=== PATIENT | male | born 1990 | race Caucasian/White ===

== ENCOUNTER 2020-04-16 22:34 | Observation (INO) | payer OTHER, SELFPAY ==
[2020-04-16 22:45] VITALS: BP 120/78; PULSE 107; RESP 10; TEMP 36.8; O2SAT 88; BMI 38.4
--- NOTE | 2020-04-16 22:50 | PC.NURSE ---
Pt on presentation was very lethargic and unable to stay awake, Officer states pt was awake when he arrived at scene and progressively became more thethargic, Narcan IV given and pt started waking up and vomited, pt had minimal response to 2mg Narcan, a second dose given and pt continued to become more lethargic, a third dose of 2mg Narcan given and pt becoming more lethargic. O2 sats were 90% on NRB mask 15L/M. Dr Alva made the decision to intubate pt.
[2020-04-16 23:00] VITALS: BMI 36.9
--- NOTE | 2020-04-16 23:01 | XR_ITS ---
PROCEDURE: XR CHEST PORTABLE CLINICAL HISTORY: SOB Overdose, shortness of breath, tube placement COMPARISON: No exams were available for comparison FINDINGS: 2300 hours Endotracheal tube tip is 2.6 cm above the rosina. NG tube tip is in the region of body of stomach. Consolidation is present in the left lower lobe. Normal heart size. No acute bony abnormalities. IMPRESSION: Endotracheal tube and nasogastric tube in good position. Left lower lobe pneumonia Dictated by: Checo Philip MD 04/17/2020 04:50 Checo Philip MD in [place] 04/17/2020 04:50
[2020-04-16 23:03] VITALS: BP 120/78; PULSE 105; RESP 20; O2SAT 89
[2020-04-16 23:06] LABS: Basophils % 0.4 % (0.1-2.0); Eosinophils # 0.2 K/mm3 (0.0-0.4); Eosinophils % 1.7 % (0.1-12.0); Hematocrit 42.9 % (42.0-52.0); Hemoglobin 14.6 g/dL (14.1-18.0); Lymphocytes # 0.9 K/mm3 (0.7-4.5); Lymphocytes % 9.7 % (10-50); Mean Corpuscular HGB Conc 34.1 g/dL (31.8-35.4); Mean Corpuscular Hemoglobin 30.7 pg (27.0-31.2); Mean Corpuscular Volume 90.2 fl (80-94); Mean Platelet Volume 8.9 fl (7.4-10.4); Monocytes # 0.7 K/mm3 (0.1-1.0); Monocytes % 6.8 % (1.7-9.3); Neutrophils # 7.9 K/mm3 (1.8-7.8); Neutrophils % 81.5 % (37.0-80.0); Platelet Count 168 K/mm3 (142-424); Red Blood Count 4.75 M/mm3 (4.60-6.20); Red Cell Distribution Width 13.7 % (11.5-17.5); White Blood Count 9.7 K/mm3 (4.8-10.8)
[2020-04-16 23:10] LABS: ABG Base Excess -0.6 mmol/L (-2.4-2.3); ABG HCO3 25.5 mmhg (22.0-26.0); ABG Oxygen Saturation 88 % (90-100); ABG PH 7.32 mmol/L (7.35-7.45); ABG PO2 56.1 mmhg (80-100)
[2020-04-16 23:11] LABS: Alanine Aminotransferase 115 U/L (12-78); Albumin Level 4.7 g/dl (3.5-5.0); Albumin/Globulin Ratio 1.5 (1.1-1.8); Alkaline Phosphatase 104 U/L (38-126); Anion Gap 12.3 mEq/L (5-15); Aspartate Amino Transferase 73 U/L (17-59); Bilirubin,Total 0.4 mg/dl (0.2-1.3); Blood Urea Nitrogen 13 mg/dl (9-20); Calcium 9.6 mg/dl (8.4-10.2); Carbon Dioxide 28 mmol/L (22.0-30.0); Chloride 103 mmol/L (98-107); Creatinine Clearance Estimated 243 mL/min (50-200); Estimated Glomerular Filt Rate 114 ml/min (>60); GFR (African American) 137 ML/MIN (>60); Globulin 3.2 g/dL (1.3-3.2); Glucose 99 mg/dl (74-100); Potassium 4.3 mmoL/L (3.5-5.1); Sodium 139 mmol/L (136-145); Total Protein,Serum 7.9 g/dl (6.3-8.2)
--- NOTE | 2020-04-16 23:14 | PC.NURSE ---
Pt positioned for intubation, Oral suctioning performed Ambu ventilation in progress 100mg Ketamine followed by 100mg Rocuronium and first attempt of pt intubation made and failed to properly place. ETT removed and Ambu ventilation resumed. a second ETT was prepared and second attempt with 7.5 ETT, placed 23cm at lip with positive CO2 color change and bilateral breath sound auscultated throughout, tube was secured and pt placed ov ventilator FIO2 100% rate of 18 ,TV 500, PS 8, PEEP 6. 16 guamanian OG placed with 500ml green bile returned. Pt placed on Propofol gtt and HOB raised to 30 degrees. VS stable at this time.
--- NOTE | 2020-04-16 23:15 | PC.NURSE ---
Pt was given 100mg Rocuronium at 2315 04/16/2020, will not scan
[2020-04-16 23:33] VITALS: BP 158/104; PULSE 114; RESP 18; O2SAT 93
--- NOTE | 2020-04-16 23:48 | HMH.EDOD ---
ED Disposition Clinical Impression: Poisoning by opiate or related narcotic, COVID-19 virus IgG antibody detected, COVID-19 virus IgM antibody detected Respiratory failure Qualifiers: Chronicity: acute Respiratory failure complication: hypoxia and hypercapnia Qualified Code(s): J96.01 - Acute respiratory failure with hypoxia; J96.02 - Acute respiratory failure with hypercapnia Disposition: Admitted As Inpatient Condition on Discharge: Critical - Critical Care Critical Care Time: Yes Attestation: On 04/16/20, the high probability of a clinically significant, sudden or life threatening deterioration of the following system(s) required my full and direct attention, intervention and personal management. The time I documented below is in addition to time spent performing reported procedures but includes the following listed in this critical care notation. Total Critical Care Time: 60 Vital system(s) involved:: Respiratory Failure My critical care processes included: Assessment & monitoring of V/S, Initial and Re-exams, Data Review/Interpretation, Coordinating Care, Medication Orders and management, Documentation Medical Decision Making - Medical Records Medical records reviewed: Yes: I reviewed the patient's medical records. - Khoa Inquiry Pt receiving controlled substance: No Vital Signs: 04/16/20 22:45 04/16/20 23:03 04/16/20 23:33 Temperature 98.2 F Temperature Source Oral Pulse Rate [Right] 107 H 105 H 114 H Respiratory Rate 10 L 20 18 Blood Pressure [Right Arm] 120/78 120/78 158/104 H Blood Pressure Mean [Right Arm] 92 92 122 Blood Pressure Position [Right Arm] Supine 02 Sat by Pulse Oximetry 88 L 89 L 93 L Oxygen Delivery Method Room Air Ambu-Bag Mechanical Ventilation Oxygen Flow Rate (LPM) 15 100 04/17/20 00:03 04/17/20 00:33 04/17/20 01:03 Temperature Temperature Source Pulse Rate [Right] 88 82 79 Respiratory Rate 18 18 18 Blood Pressure [Right Arm] 137/93 H 102/60 L 104/61 L Blood Pressure Mean [Right Arm] 107 74 75 Blood Pressure Position [Right Arm] 02 Sat by Pulse Oximetry 99 100 100 Oxygen Delivery Method Mechanical Ventilation Mechanical Ventilation Mechanical Ventilation Oxygen Flow Rate (LPM) 04/17/20 01:41 04/17/20 01:58 04/17/20 02:32 Temperature 97.8 F Temperature Source Rectal Pulse Rate [Right] 96 H 90 91 H Respiratory Rate 18 18 18 Blood Pressure [Right Arm] 103/72 L 115/70 118/66 Blood Pressure Mean [Right Arm] 82 85 83 Blood Pressure Position [Right Arm] 02 Sat by Pulse Oximetry 100 100 100 Oxygen Delivery Method Mechanical Ventilation Mechanical Ventilation Mechanical Ventilation Oxygen Flow Rate (LPM) - Lab Data Lab results reviewed: Yes: I reviewed the patient's lab results. Lab Results 04/16/20 22:40: WBC 9.7, RBC 4.75, Hgb 14.6, Hct 42.9, MCV 90.2, MCH 30.7, MCHC 34.1, RDW 13.7, Plt Count 168, MPV 8.9, Neut % (Auto) 81.5 H, Lymph % (Auto) 9.7 L, [place] % (Auto) 6.8, Eos % (Auto) 1.7, Baso % (Auto) 0.4, Neut # (Auto) 7.9 H, Lymph # (Auto) 0.9, [place] # (Auto) 0.7, Eos # (Auto) 0.2, Baso # (Auto) 0.0 04/16/20 22:40: Sodium 139, Potassium 4.3, Chloride 103, Carbon Dioxide 28, Anion Gap 12.3, BUN 13, Creatinine 0.80, Estimated Creat Clear 243, Estimated GFR 114, Est GFR ( Amer) 137, Glucose 99, Calcium 9.6, Total Bilirubin 0.4, AST 73 H, ALT 115 H, Alkaline Phosphatase 104, Total Protein 7.9, Albumin 4.7, Globulin 3.2, Albumin/Globulin Ratio 1.5 04/16/20 22:40: Troponin I < 0.01 04/16/20 22:40: Urine Opiates Screen Negative, Urine Methadone Screen Negative, Ur Barbituates Screen Negative, Ur Phencyclidine Scrn Positive H, Ur Amphetamines Screen Negative, U Benzodiazepines Scrn Positive H, Urine Cocaine Screen Negative, U Marijuana (THC) Screen Negative 04/16/20 22:58: SARS-CoV-2 IgG Ab (Rapid) Positive A, SARS-CoV-2 IgM Ab (Rapid) Positive A 04/16/20 22:58: Urine Color Yellow, Urine Appearance Clear, Urine pH 7.5, Ur Specific [place] 1.015, U
[2020-04-17] VITALS (35 sets, daily range): BP systolic 96–152; BP diastolic 53–98; PULSE 70–120; RESP 12–18; TEMP 36.6–39.3; O2SAT 91–100; BMI 36.8
--- NOTE | 2020-04-17 00:09 | ECG_ITS ---
APPROVED REPORT Exam: Resting ECG HR:89 bpm ECG Measurements Heart Rate 89 AXES OH 158 P 28 QRSd 88 QRS -4 QT 376 T -14 QTc 457 Conclusion Normal sinus rhythm Normal ECG Electronically signed by : Don Antonio, 04/17/2020 07:50:28
[2020-04-17 00:14] LABS: Oxygen 100 %
[2020-04-17 00:15] LABS: ABG PCO2 50.3 mmhg (35.0-45.0)
--- NOTE | 2020-04-17 00:23 | PC.NURSE ---
Confirmed ABX treatment with James pharmacist.
[2020-04-17 00:33] LABS: Barbiturates Screen,Urine Negative ng/ml (<200); Benzodiazepines Screen,Urine Positive ng/ml (<200)
[2020-04-17 00:34] LABS: Amphetamine/Metha Screen,Urine Negative ng/ml (<1000); Cannabinoid Screen,Urine Negative ng/ml (<50)
[2020-04-17 00:35] LABS: Cocaine Screen,Urine Negative ng/ml (<300)
[2020-04-17 00:36] LABS: Methadone Screen,Urine Negative ng/ml (<300); Opiate Screen,Urine Negative ng/ml (<300)
[2020-04-17 00:37] LABS: Phencyclidine Screen,Urine Positive ng/ml (<25)
[2020-04-17 00:40] LABS: ABG Base Excess -0.1 mmol/L (-2.4-2.3); ABG Oxygen Saturation 97 % (90-100); ABG PCO2 43.1 mmhg (35.0-45.0); ABG PH 7.38 mmol/L (7.35-7.45); ABG PO2 93.9 mmhg (80-100); ABG TCO2 26.3 mmhg (23-27); Oxygen 100 %; Vent Rate 18
[2020-04-17 00:41] LABS: Allen's Test Y; PEEP 7; Pressure Support 8; Source R/R
[2020-04-17 00:44] LABS: Coronavirus 19 IgG Antibody Positive (Negative)
[2020-04-17 00:45] LABS: Coronavirus 19 IgM Antibody Positive (Negative)
[2020-04-17 00:57] LABS: Troponin I < 0.01 ng/ml (0.00-0.034)
[2020-04-17 00:58] LABS: Microscopic, Urine URINE MICROSCOPIC (MICROSCOPIC)
[2020-04-17 01:01] LABS: Appearance,Urine CLEAR (Clear); Bilirubin,Urine Negative (Negative); Blood, Urine 3+ (Negative); Color,Urine YELLOW (Yellow); Glucose,Urine (UA) Negative (Negative); Ketones,Urine Negative (Negative); Leukocyte Esterase,Urine Negative (Negative); Nitrate,Urine Negative (Negative); PH,Urine 7.5 (5.0-8.5); Protein,Urine Negative (Negative); Specific Gravity, Urine 1.015 (1.005-1.030); Urobilinogen,Urine 0.2 EU/dl (0.2)
--- NOTE | 2020-04-17 01:09 | XR_ITS ---
PROCEDURE: XR CHEST PORTABLE CLINICAL HISTORY: post intubation w/ possible aspiration COMPARISON: CR XR CHEST PORTABLE from 04/16/2020 FINDINGS: 1:25 a.m.. Endotracheal tube tip is 1.8 cm above the rosina. Nasogastric tube tip is in the region of the body of stomach. Normal heart size. Increasing consolidation is present in the left lower lobe and in the left perihilar region. Atelectatic changes are present in the right upper lobe. There is also increased density in the right infrahilar area. IMPRESSION: Endotracheal tube tip is slightly low at 1.8 cm above the rosina. NG tube tip in good position. Increasing consolidation in the left lower lobe left perihilar region and right infrahilar area consistent with bilateral pneumonia. Aspiration is a consideration. Dictated by: Checo Philip MD 04/17/2020 04:48 Checo Philip MD in [place] 04/17/2020 04:48
[2020-04-17 01:20] LABS: Adenovirus,PCR Not Detected (NotDetected); Bordetella Pertussis Not Detected (NotDetected); Chlamydophila Pneumoniae, PCR Not Detected (NotDetected); Coronavirus 19, PCR Not Detected (NotDetected); Coronavirus 229E Not Detected (NotDetected); Coronavirus NL63 Not Detected (NotDetected); Coronavirus OC43 Not Detected (NotDetected); Coronovirus HKU1,PCR Not Detected (NotDetected); Human Metapneumovirus Not Detected (NotDetected); Influenza A, PCR Not Detected (NotDetected); Influenza AH1, 2009 Not Detected (NotDetected); Influenza AH1, PCR Not Detected (NotDetected); Influenza AH3,PCR Not Detected (NotDetected); Influenza B, PCR Not Detected (NotDetected); Mycoplasma Pneumoniae, PCR Not Detected (NotDetected); Parainfluenza 1, PCR Not Detected (NotDetected); Parainfluenza 2, PCR Not Detected (NotDetected); Parainfluenza 3, PCR Not Detected (NotDetected); Parainfluenza 4, PCR Not Detected (NotDetected); Respiratory Syncytial Virus Not Detected (NotDetected); Rhinovirus/Enterovirus Not Detected (NotDetected)
--- NOTE | 2020-04-17 02:33 | PC.NURSE ---
Thick dark secretions suctioned from pt's mouth, scant suctioned through Am[place], OG continues to produce copious amounts of bile.
--- NOTE | 2020-04-17 03:12 | PC.NURSE ---
patient up to floor via stretcher per staff.
[2020-04-17 04:17] LABS: Troponin I < 0.01 ng/ml (0.00-0.034)
[2020-04-17 05:47] LABS: POC Glucose,Bedside 144 (70-110)
[2020-04-17 06:35] LABS: Basophils % 0.1 % (0.1-2.0); Eosinophils # 0.1 K/mm3 (0.0-0.4); Eosinophils % 0.6 % (0.1-12.0); Hematocrit 41.8 % (42.0-52.0); Hemoglobin 14.4 g/dL (14.1-18.0); Lymphocytes # 0.5 K/mm3 (0.7-4.5); Lymphocytes % 5.1 % (10-50); Mean Corpuscular HGB Conc 34.5 g/dL (31.8-35.4); Mean Corpuscular Hemoglobin 31.3 pg (27.0-31.2); Mean Corpuscular Volume 90.7 fl (80-94); Mean Platelet Volume 8.8 fl (7.4-10.4); Monocytes # 0.4 K/mm3 (0.1-1.0); Monocytes % 4.8 % (1.7-9.3); Neutrophils # 7.9 K/mm3 (1.8-7.8); Neutrophils % 89.3 % (37.0-80.0); Platelet Count 149 K/mm3 (142-424); Red Blood Count 4.61 M/mm3 (4.60-6.20); Red Cell Distribution Width 13.8 % (11.5-17.5); White Blood Count 8.8 K/mm3 (4.8-10.8)
[2020-04-17 06:57] LABS: MANUAL DIFFERENTIAL MANUAL DIFFERENTIAL (MANUAL DIFF)
[2020-04-17 07:01] LABS: Chloride 102 mmol/L (98-107); Potassium 3.8 mmoL/L (3.5-5.1); Sodium 139 mmol/L (136-145)
[2020-04-17 07:04] LABS: Anion Gap 12.8 mEq/L (5-15); Blood Urea Nitrogen 11 mg/dl (9-20); Carbon Dioxide 28 mmol/L (22.0-30.0); Creatinine Clearance Estimated 241 mL/min (50-200); Estimated Glomerular Filt Rate 114 ml/min (>60); GFR (African American) 137 ML/MIN (>60); Glucose 155 mg/dl (74-100); Magnesium 1.5 mg/dl (1.6-2.3)
[2020-04-17 07:13] LABS: Troponin I < 0.01 ng/ml (0.00-0.034)
[2020-04-17 07:15] LABS: ABG Base Excess 2.1 mmol/L (-2.4-2.3); ABG HCO3 26.9 mmhg (22.0-26.0); ABG Oxygen Saturation 99 % (90-100); ABG PCO2 44.2 mmhg (35.0-45.0); ABG PO2 301.7 mmhg (80-100); ABG TCO2 28.2 mmhg (23-27)
[2020-04-17 07:17] LABS: Allen's Test Patient Unable; Oxygen 100 %; PEEP 5; Pressure Support 10; Source Right Radial; Tidal Volume 500; Vent Rate 18
--- NOTE | 2020-04-17 07:21 | PC.NURSE ---
patient is intubated at this time and sedated. he is unable to answer questions so admission is limited
--- NOTE | 2020-04-17 07:30 | XR_ITS ---
PROCEDURE: XR CHEST PORTABLE CLINICAL HISTORY: intubation Respiratory failure, overdose, pneumonia COMPARISON: CR XR CHEST PORTABLE from 04/16/2020 CR XR CHEST PORTABLE from 04/17/2020 FINDINGS: Endotracheal tube tip is in good position 3.4 cm above the rosina. Nasogastric tube tip is in the region of the body of the stomach. Consolidation is present in the left mid and lower lung zone and right lower lobe medially consistent with bilateral pneumonia which may be due to aspiration. This may be slightly worse on both sides. No acute bony abnormalities. IMPRESSION: Endotracheal tube and nasogastric tube in good position with bilateral pneumonia which may be slightly worse Dictated by: Checo Philip MD 04/17/2020 07:36 Checo Philip MD in [place] 04/17/2020 07:36
--- NOTE | 2020-04-17 08:00 | CA_ITS ---
APPROVED REPORT EXAM: Comprehensive 2D, Doppler, and color-flow Echocardiogram Corner Cutter Machine Operator: Aleja Limon CRT Ht: 6 ft 1 in Wt: 280lbs BSA: 2.48 BP: 118/66 mmHg Indications: Murmur, OD, NARCANED, INTUBATED 2D Dimensions Aortic Root 2.92 cm LVOT 2.06 cm (M/F) 1.5-2.5 M-Mode Dimensions RVDd 2.69 cm (0.9-2.6) LA Diam 3.05 cm (1.9-4.0) LVDd 5.03 cm (3.5-5.7) Ao Diam 3.65 cm (2.0-3.7) LVDs 3.39 cm (3.5-5.7) IVSd 1.26 cm (0.6-1.1) PWd 0.84 cm (0.6-1.1) EF (Teich) 60.70% FS 32.60% EDV (Teich) 119.90 mL ESV (Teich) 47.10 mL LV Diastology E Decel Time 210.00 (160-240 msec) E/A Ratio 1.17 MED E' 6.40 (< 7 cm/sec) E'/MED E' Ratio 11.50 (>14) LAT E' 9.40 (<10 cm/sec) E/LAT E' Ratio 7.83 (>14) Aortic Valve AO Peak GR. 3.10 mmHg Mitral Valve MV A Velocity 63.00 (40-130 cm/s) E/A Ratio 1.17 MV Decel. Time 210.00 (160-240 ms) Pulmonary Valve PV Peak Velocity 125.00 (50-150 cm/s) Tricuspid Valve TR P. Velocity 290.00 cm/s Left Ventricle Left atrium is normal size, left ventricle is normal size, there is no concentric left ventricular hypertrophy, visually estimated ejection fraction 55% with no regional wall motion abnormality, diastolic parameters are within normal range. Right Ventricle Right atrium and right ventricle are normal size and contractility. Aortic Valve Aortic valve is grossly normal, there is no aortic stenosis or aortic insufficiency. Mitral Valve Mitral valve is grossly normal, there is no mitral stenosis, there is trace mitral regurgitation. Tricuspid Valve Tricuspid valve is grossly normal, there is trace tricuspid regurgitation. Pulmonic Valve Pulmonic valve is poorly visualized. Great Vessels Aortic root is normal size. Pericardium No significant pericardial effusion noted. Conclusion 1. Normal left ventricular size, preserved left ventricular systolic function, visually estimated ejection fraction 55% with no regional wall motion abnormality, diastolic parameters are within normal range. 2. Trace mitral and tricuspid regurgitation. 3. No significant pericardial effusion noted. Electronically signed by : Ivan Neal, 04/18/2020 04:34:24
--- NOTE | 2020-04-17 08:33 | HMH.PHAVTE ---
[facility] Pharmacy VTE Monitoring - Patient Demographics Admission date: 04/17/20 Report Date: 04/17/20 Time: 08:33 Allergies/Adverse Reactions: Patient Allergies No Known Allergies Allergy (Unverified 06/03/17 14:49) Height: 1.85 m Weight: 126 kg Patient Problems: Current Active Problems Poisoning by opiate or related narcotic (Acute) Respiratory failure (Acute) COVID-19 virus IgG antibody detected (Acute) COVID-19 virus IgM antibody detected (Acute) - VTE Risk Labs: VTE Related Lab Results Hgb 14.4 g/dL (14.1-18.0) 04/17/20 06:10 Hct 41.8 % (42.0-52.0) L 04/17/20 06:10 Plt Count 149 K/mm3 (142-424) 04/17/20 06:10 BUN 11 mg/dl (9-20) 04/17/20 06:10 Creatinine 0.80 mg/dl (0.66-1.25) 04/17/20 06:10 Estimated Creat Clear 241 mL/min (50-200) 04/17/20 06:10 Clinical Trial Participant: No - Prophylaxis VTE Prophylaxis Ordered?: Yes Types of VTE Prophylaxis: TEDS Knee High Location of Applied Device: Bilateral Lower Extremeties
--- NOTE | 2020-04-17 08:55 | PC.NURSE ---
0800 turned to l side 0835 turned propafol down to 18mcg/kg/min
[2020-04-17 09:00] LABS: Lymphocytes % 8 % (10-50); Monocytes % 3 % (2-9); Neutrophils % 84 % (42-76); Total Cells Counted 100
[2020-04-17 09:01] LABS: Platelet Estimate Normal; RBC Morphology Normal
[2020-04-17 09:09] LABS: Creatine Kinase 159 U/L (55-170)
--- NOTE | 2020-04-17 09:22 | PC.NURSE ---
Addendum entered by Lucille Edwards RN 04/17/20 09:52: was also instructed to increase LR to 100ml/hr Original Note: dr. nguyen turned down fio2 to 50% at this time. also stated to order soft restraints for wrists prior to weaning of sedation to protect patient air way. once patient awake instructed to do spontaneous breathing trial.
--- NOTE | 2020-04-17 10:08 | PC.NURSE ---
propofol turned off at this time after slowly decreasing rate. at this time no change in patient. not responding to verbal stimuli or shaking
--- NOTE | 2020-04-17 10:09 | HMH.HP ---
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 -pt was admitted for resp support and iv abx - [facility] History I have reviewed the patient's past medical history: Yes *Have you ever received a pneumonia vaccine?: No *Have you received a flu vaccine this season?: No - *Social History Smoking Status: Current every day smoker # Packs/Day (cigarettes): 1 Alcohol Intake: current Substance Use Type: heroin, inhalants 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 *Occupational Status:: other *Travel in the last 8 weeks: None Family Hx:: Unable to obtain Review of Systems - Review of Systems Review of systems:: unable to obtain Meds Home Medications Medication Instructions Recorded Confirmed Type No Known Home Medications 04/17/20 04/17/20 History Allergies Allergy/AdvReac Type Severity Reaction Status Date / Time No Known Allergies Allergy Unverified 06/03/17 14:49 Exam Vital signs and Labs for Last 24 Hours: Temp Pulse Resp BP Pulse Ox 98.6 F 70 18 124/73 100 04/17/20 08:00 04/17/20 08:00 04/17/20 08:00 04/17/20 08:00 04/17/20 08:00 Laboratory Results - last 24 hr 04/16/20 22:40: WBC 9.7, RBC 4.75, Hgb 14.6, Hct 42.9, MCV 90.2, MCH 30.7, MCHC 34.1, RDW 13.7, Plt Count 168, MPV 8.9, Neut % (Auto) 81.5 H, Lymph % (Auto) 9.7 L, [place] % (Auto) 6.8, Eos % (Auto) 1.7, Baso % (Auto) 0.4, Neut # (Auto) 7.9 H, Lymph # (Auto) 0.9, [place] # (Auto) 0.7, Eos # (Auto) 0.2, Baso # (Auto) 0.0 04/16/20 22:40: Sodium 139, Potassium 4.3, Chloride 103, Carbon Dioxide 28, Anion Gap 12.3, BUN 13, Creatinine 0.80, Estimated Creat Clear 243, Estimated GFR 114, Est GFR ( Amer) 137, Glucose 99, Calcium 9.6, Total Bilirubin 0.4, AST 73 H, ALT 115 H, Alkaline Phosphatase 104, Total Protein 7.9, Albumin 4.7, Globulin 3.2, Albumin/Globulin Ratio 1.5 04/16/20 22:40: Troponin I < 0.01 04/16/20 22:40: Urine Opiates Screen Negative, Urine Methadone Screen Negative, Ur Barbituates Screen Negative, Ur Phencyclidine Scrn Positive H, Ur Amphetamines Screen Negative, U Benzodiazepines Scrn Positive H, Urine Cocaine Screen Negative, U Marijuana (THC) Screen Negative 04/16/20 22:58: SARS-CoV-2 IgG Ab (Rapid) Positive A, SARS-CoV-2 IgM Ab (Rapid) Positive A 04/16/20 22:58: Urine Color Yellow, Urine Appearance Clear, Urine pH 7.5, Ur Specific [place] 1.015, Urine Protein Negative, Urine Glucose (UA) Negative, Urine Ketones Negative, Urine Blood 3+, Urine Nitrate Negative, Urine Bilirubin Negative, Urine Urobilinogen 0.2, Ur Leukocyte Esterase Negative, Urine RBC 3-5 04/16/20 23:08: O2 % 100, ABG pH 7.32 L, ABG pCO2 50.3 H, ABG pO2 56.1 L, ABG HCO3 25.5, ABG Total CO2 27.0, ABG O2 Saturation 88 L, ABG Base Excess -0.6 04/17/20 00:38: Specimen Source R/r, O2 % 100, ABG pH 7.38, ABG pCO2 43.1, ABG pO2 93.9, ABG HCO3 25.0, ABG Total CO2 26.3, ABG O2 Saturation 97, ABG Base Excess -0.1, Checo Test Y, Vent Rate 18, PEEP 7 04/17/20 01:15: Chlamy pneumoniae PCR Not detected, Adenovirus (PCR) Not detected, B. pertussis DNA (PCR) Not detected, Coronavirus OC43 (PCR) Not detected, Coronavirus HKU1 (PCR) Not detected, Coronavirus 229E (PCR) Not detected, SARS-CoV-2 (PCR) Not detected, Coronavirus NL63 (PCR) Not detected, Human Metapneumovir PCR Not detected, Influenza A (H1) PCR Not detected, Influ A (H1N1/09) PCR Not detected, Influenza A (H3) PCR Not detected, Influenza Type A (PCR) Not detected, Influenza Type B (PCR) Not detected, M. pneumoniae (PCR) Not detected, Parainfluenza 1 (PCR) Not detected, Parainfluenza 2 (PCR) Not detected, Parainfluenza 3 (PCR) Not detected, Parainfluenza 4 (PCR) Not detected, RSV (PCR) Not detected, Entero/Rhino (PCR) Not detected 04/17/20 03:30: Trop
--- NOTE | 2020-04-17 11:19 | HMH.PULMCON ---
*Admission Date: 04/17/20 *History of present illness: Patient intubated and sedated. Family cannot be reached. History obtained from chart review. Mr. Adkins is a 37-year-old male previous drug abuser presented to the hospital with altered mentation/agitation and patient was found to be actively taking drugs before EMS brought the patient to the hospital. On arrival patient given Narcan without any response and patient was intubated for airway protection. 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 *Occupational Status:: other *Travel in the last 8 weeks: None Family Hx:: Unable to obtain ROS - Review of Systems Review of systems:: unable to obtain Review of systems unable to obtain as patient intubated and sedated on mechanical ventilation Meds Home Medications Medication Instructions Recorded Confirmed Type No Known Home Medications 04/17/20 04/17/20 History Allergies Allergy/AdvReac Type Severity Reaction Status Date / Time No Known Allergies Allergy Unverified 06/03/17 14:49 Exam Radiology reports for Last 24 Hours: Chest x-ray showed left upper lobe & right lower lobe pulmonary infiltrates. ET tube in position - Constitutional Constitutional:: no acute distress, comfortable - HENMT Exam HENMT: normocephalic, atraumatic - Eye Exam Eyes:: normal appearance both eyes and related structures, normal conjunctiva - Neck Exam Neck:: normal visual inspection, thyroid normal, no lymphadenopathy - Respiratory Exam Respiratory:: crackles Comments: Intubated and mechanically ventilated. Coarse breath sounds in both lower lung blank - Cardiovascular Exam Cardiac:: regular rhythm, S1, S2 - GI Exam GI:: soft, no hepatosplenomegaly - Skin Exam Skin: warm, no rash - Neurological Exam Sedated at a RASS of -4 - Extremities Exam Extremities: no cyanosis, no clubbing, no edema Internal Medicine - CN: Reslt - Labs CBC & Chem 7: 04/17/20 06:10 04/17/20 06:10 Labs: Short CBC 04/16/20 04/17/20 Range/Units 22:40 06:10 WBC 9.7 8.8 (4.8-10.8) K/mm3 Hgb 14.6 14.4 (14.1-18.0) g/dL Hct 42.9 41.8 L (42.0-52.0) % Plt Count 168 149 (142-424) K/mm3 BMP 04/16/20 04/17/20 22:40 06:10 Sodium 139 139 Potassium 4.3 3.8 Chloride 103 102 Carbon Dioxide 28 28 BUN 13 11 Creatinine 0.80 0.80 Glucose 99 155 H D Calcium 9.6 9.0 Cardiac Enzymes 04/16/20 04/17/20 04/17/20 Range/Units 22:40 03:30 06:10 Total Creatine Kinase (55-170) U/L Troponin I < 0.01 < 0.01 < 0.01 (0.00-0.034) ng/ml 04/17/20 Range/Units 06:10 Total Creatine Kinase 159 (55-170) U/L Troponin I (0.00-0.034) ng/ml Liver Function 04/16/20 Range/Units 22:40 Total Bilirubin 0.4 (0.2-1.3) mg/dl AST 73 H (17-59) U/L ALT 115 H (12-78) U/L Alkaline Phosphatase 104 (38-126) U/L Albumin 4.7 (3.5-5.0) g/dl Urine 04/16/20 Range/Units 22:58 Urine Color Yellow (Yellow) Urine Appearance Clear (Clear) Urine pH 7.5 (5.0-8.5) Ur Specific [place] 1.015 (1.005-1.030) Urine Protein Negative (Negative) Urine Glucose (UA) Negative (Negative) - ABG Interpretation ABG results: 04/16/20 04/17/20 04/17/20 23:08 00:38 07:10 ABG pH 7.32 L 7.38 7.40 ABG pCO2 50.3 H 43.1 44.2 ABG pO2 56.1 L 93.9 301.7 H ABG HCO3 25.5 25.0 26.9 H ABG Total CO2 27.0 26.3 28.2 H ABG O2 Saturation 88 L 97 99 ABG Base Excess -0.6 -0.1 2.1 Interpretation: normal Assessment and Plan - Assessment and plan all Dx Assessment and Plan for all problems:: #Acute intoxication: #Altered mentation: #Acute respiratory failure: 29-year-old with no
--- NOTE | 2020-04-17 13:03 | PC.NURSE ---
Addendum entered by Lucille Edwards RN 04/17/20 13:34: ALSO NOTED OG TUBE WAS FOUND ON FLOOR. WILL NOT ATTEMPT TO REPLACE AT THIS TIME. Addendum entered by Lucille Edwards RN 04/17/20 13:28: NURSING STAFF SITTING AT BEDSIDE Addendum entered by Lucille Edwards RN 04/17/20 13:28: RESTRAINTS DISCONTINUED. PATIENT COOPERATING WITH VENT AND NOT ATTEMPTING TO PULL OUT Original Note: late entry: [address] MÁRQUEZ AND GE[place]GINA AWARE PATIENT HAD BEEN OFF SEDATION FOR ABOUT 1.5 HOURS. NOTED TO HAVE NO REFLEXES AT THAT TIME, AND UN-AROUSABLE. PUPILS PINPOINT AND SLUGGISH TO REACT IF AT ALL. WOULD CONTINUE TO MONITOR. 1200 REMOVED RESTRAINTS FROM PATIENT WRIST TO TURN HIM. WHEN LYING PATIENT BACK HE OPENED HIS EYES AND TRIED TO SIT UP. PATIENT WAS A LITTLE ANXIOUS WHEN WAKING BUT AFTER EDUCATING PATIENT ON WHAT HAPPENED AND WHERE HE WAS HE CALMED DOWN. PATIENT STARTED TO WRITE ON A PAPER TO COMMUNICATE WITH STAFF. HE DID WRITE I FEEL LIKE I CANT BREATH. MORE EDUCATION DONE WITH PATIENT. HE REMAINED CALMED AND APPEARED TO UNDERSTAND WHAT WAS GOING ON. STILL SOME MOMENTS OF STARING OFF INTO SPACE. RESTRAINTS REMAINED OFF DURING THIS TIME AND PATIENT WAS EDUCATED WHY THEY WERE USED IN BEGINNING. 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 AFTER WILLI ASSESSED PATIENT HE WISHED TO GIVE PATIENT A 2 HOUR TRIAL TO GIVE HIM MORE TIME TO WAKE UP FULLY. PATIENT WAS UNDERSTANDING WITH THIS. CURRENTLY PATIENT IS SLEEPING AND TOLERATING VENT WELL. NO ISSUES NOTED BREATHING ABOUT 12-18 A MINUTE. PULSE RATE IN 90S. BP WITHIN NORMAL LIMITS.
--- NOTE | 2020-04-17 14:38 | PC.NURSE ---
dr nguyen rounded on patient. update given. stated okay to extubate at this time. called and updated respiratory therapy
--- NOTE | 2020-04-17 15:38 | PC.NURSE ---
Addendum entered by Lucille Edwards RN 04/17/20 15:45: correction 40% venti Original Note: extubated at 1450 some green sputum coughed up on gown during extubation. placed patient on 50% venti once extubated currently sating 93% with no difficulty, breathing easy and resting in bed, heart rate elevated fever 101.1 axillary. will administer tylenol
--- NOTE | 2020-04-17 15:55 | PC.NURSE ---
put in speech eval for patient. they got okay from case management to place patient on regular thin liquid diet. if any issues arise notify them and make patient npo. patient has had water with no difficulty
--- NOTE | 2020-04-17 16:00 | PC.NURSE ---
placed patient on 3 l o2 at this time
[2020-04-17 16:30] LABS: POC Glucose,Bedside 160 (70-110)
[2020-04-17 17:44] LABS: POC Glucose,Bedside 138 (70-110)
--- NOTE | 2020-04-17 19:09 | PC.NURSE ---
alerted neus patient heart rate had been elevated in 120s and got okay to remove norman
--- NOTE | 2020-04-17 19:25 | PC.NURSE ---
report given to dionte
--- NOTE | 2020-04-17 19:49 | ECG_ITS ---
APPROVED REPORT Exam: Resting ECG HR:109 bpm ECG Measurements Heart Rate 109 AXES [place] 166 P 38 QRSd 84 QRS 8 QT 318 T -9 QTc 428 Conclusion Sinus tachycardia Incomplete RBBB Nonspecific T wave abnormality Abnormal ECG Electronically signed by : Jose Centeno, 04/18/2020 16:47:03
[2020-04-18] VITALS: BP 134/76; PULSE 112; PULSE 116; RESP 16; TEMP 36.9; O2SAT 99
[2020-04-18 02:00] VITALS: BP 131/74; PULSE 103; RESP 20; O2SAT 95
[2020-04-18 04:00] VITALS: BP 130/85; PULSE 100; PULSE 102; RESP 20; TEMP 37.3; O2SAT 95
[2020-04-18 04:22] VITALS: BMI 36.8
--- NOTE | 2020-04-18 05:44 | PC.NURSE ---
shift summary patient has awake alert and oriented throughout night. o2 sats have maintained greater than 92%, patient now on room air and sustaining sats. breath sounds diminished with expiratory wheezes throughout. strong, intermittent productive cough. temperature has not been greater than 100 this shift. cardiac cath lab technologist has shown sr to st from 80s to 120 on rate. bowel sound active x 4. voiding per urinal clear yellow urine.
[2020-04-18 06:00] VITALS: BP 139/87; PULSE 98; RESP 20; O2SAT 93
[2020-04-18 08:00] VITALS: BP 150/98; PULSE 100; PULSE 95; RESP 18; TEMP 37; O2SAT 92; O2SAT 93
--- NOTE | 2020-04-18 10:55 | SW/DCPLANNER ---
Addendum entered by Lucille Juárez 04/18/20 14:22: I have provided this patient with a resource list of drug and alcohol (inpatient and outpatient) in [place] and surrounding areas. I have also provided this patient with an information sheet regarding [employer]. Patient will discharge home today. Original Note: I have spoke with this patient regarding discharge plans. Patient stated that he resides at home and anticipates returning home once discharged today. Patient stated that he is not interested in Inpatient Rehabilitation at this time but is interested in outpatient resources. I will provide this patient with an outpatient resource list and assist with any needs/questions. Patient stated that he has been to [facility] in [place] in the past but was kicked out due to noncompliance. I will follow up with this patient and provide him with a resource list prior to discharging.
--- NOTE | 2020-04-18 11:23 | HMH.PULMPN ---
Internal Medicine - PN: Subj *Date: 04/18/20 *Time: 11:23 Interval history: No acute distress. Events overnight. Patient extubated yesterday, remained on room air with no respiratory distress Exam - Constitutional Constitutional:: no acute distress, comfortable - HENMT Exam HENMT: normocephalic, atraumatic - Eye Exam Eyes:: normal appearance both eyes and related structures, eyelids normal, normal conjunctiva, normal sclera - Neck Exam Neck:: normal visual inspection, thyroid normal, no lymphadenopathy - Respiratory Exam Respiratory:: able to speak in complete sentences, normal breath sounds, normal respiratory effort - Cardiovascular Exam Cardiac:: regular rhythm, S1, S2 - GI Exam GI:: soft, no hepatosplenomegaly - Skin Exam Skin: no rash, normal elastacity, no lesions, normal turgor - Neurological Exam Neurological: alert, awake, oriented X3 - Extremities Exam Extremities: no cyanosis, no clubbing, no edema - Psychiatric Exam Psychiatric: normal affect, appearance grossly normal, affect normal, attitude normal, no homicidal ideation, no suicidal ideation Assessment and Plan (1) COVID-19 virus IgG antibody detected Status: Acute Category: Medical Code(s): Z01.84 - Encounter for antibody response examination (2) COVID-19 virus IgM antibody detected Status: Acute Category: Medical Code(s): Z01.84 - Encounter for antibody response examination (3) Poisoning by opiate or related narcotic Status: Acute Category: Medical (4) Respiratory failure Status: Acute Qualifiers: Chronicity: acute Respiratory failure complication: hypoxia and hypercapnia Qualified Code(s): J96.01 - Acute respiratory failure with hypoxia; J96.02 - Acute respiratory failure with hypercapnia Category: Medical Code(s): J96.90 - Respiratory failure, unspecified, unspecified whether with hypoxia or hypercapnia (5) Aspiration pneumonia Status: Acute Qualifiers: Aspiration pneumonia type: due to vomit Laterality: bilateral Lung location: unspecified part of lung Qualified Code(s): J69.0 - Pneumonitis due to inhalation of food and vomit Category: Medical Code(s): J69.0 - Pneumonitis due to inhalation of food and vomit (6) Severe sepsis with acute organ dysfunction Status: Acute Category: Medical Code(s): A41.9 - Sepsis, unspecified organism; R65.20 - Severe sepsis without septic shock - Assessment and plan all Dx Assessment and Plan for all problems:: #Acute intoxication: 29-year-old with no prior medical history reported on the chart, drug abuser came in to the ED with possible intoxication and altered mentation monitoring with IV Narcan and patient was intubated for airway protection. Chest x-ray also showed left middle lobe and right lower lobe pulmonary traits concerning for aspiration. ABG post admission within normal limits. Patient weaned from sedation yesterday and eventually extubated. Patient respiratory status remained stable, on room air since yesterday with no respiratory distress. Endotracheal aspirate Gram stain showed few gram-positive diplococci, cocci in chains and few gram-negative diplococci likely mixed normal respiratory antonella Plan: -Continue levofloxacin for a total of 7 days -Patient can be discharged from pulmonary standpoint on the above-mentioned antibiotics. Thank you for involving pulmonary in this patient care. We will continue to follow.
[2020-04-18 12:00] VITALS: BP 153/97; PULSE 80; PULSE 87; RESP 16; TEMP 36.7; O2SAT 92
--- NOTE | 2020-04-18 13:54 | HMH.DCSUM ---
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 Patient was obtunded, after abnormal ABG and inability to protect airway, after having large emesis in the emergency department, patient was intubated and IV antibiotics started. He received steroids, fluids, levofloxacin and clindamycin IV. White blood cell count remained normal, H/H stable, electrolytes have remained normal, BUN/creatinine normal endotracheal aspirates most likely mixed normal antonella. SARS-COV-2 IgG positive, SARS-COV-2 IgM positive, SARS-COV-2 PCR negative 04/16/2020 chest x-ray: IMPRESSION: Endotracheal tube and nasogastric tube in good position. Left lower lobe pneumonia Dictated by: Cedrick, 04/17/2020 ECHO: Conclusion 1. Normal left ventricular size, preserved left ventricular systolic function, visually estimated ejection fraction 55% with no regional wall motion abnormality, diastolic parameters are within normal range. 2. Trace mitral and tricuspid regurgitation. 3. No significant pericardial effusion noted. Electronically signed by : Ivan Neal 29-year-old male patient lying in bed resting quietly respirations even/easy. He denies any shortness of breath during the night, room air saturations 94%, discussed discharging home today he is in agreement with this. Pulmonary has seen and recommends: 29-year-old with no prior medical history reported on the chart, drug abuser came in to the ED with possible intoxication and altered mentation monitoring with IV Narcan and patient was intubated for airway protection. Chest x-ray also showed left middle lobe and right lower lobe pulmonary traits concerning for aspiration. ABG post admission within normal limits. Patient weaned from sedation yesterday and eventually extubated. Patient respiratory status remained stable, on room air since yesterday with no respiratory distress. Endotracheal aspirate Gram stain showed few gram-positive diplococci, cocci in chains and few gram-negative diplococci likely mixed normal respiratory antonella Plan: -Continue levofloxacin for a total of 7 days -Patient can be discharged from pulmonary standpoint on the above-mentioned antibiotics. Thank you for involving pulmonary in this patient care. We will continue to follow. We will discharge home today 1. Follow-up with primary care in 1 week 2. Follow-up with pulmonary in 4 weeks 3. Levaquin 750 mg daily x5 days Objective Vital signs: Temp Pulse Resp BP Pulse Ox 98.1 F 87 16 153/97 H 92 L 04/18/20 12:00 04/18/20 12:00 04/18/20 12:00 04/18/20 12:00 04/18/20 12:00 no acute distress, cooperative - *Routine HEENT Exam Head: Present: normocephalic ENT: Present: mucous membranes moist - *Routine Neck Exam Present: supple, trachea midline. Absent: tracheal deviation - *Routine Respiratory Exam Present: rhonchi. Absent: accessory muscle use - *Routine Cardiovascular Exam Present: RRR - *Routine Abdominal Exam Present: soft, normoactive bowel sounds. Absent: tenderness, firm - *Routine Extremities Exam Present: full ROM, pulses intact. Absent: calf tenderness - *Routine Skin Exam Present: intact, warm. Absent: cyanosis, pallor - *Routine Neurological Exam Present: alert, oriented X3. Absent: altered mental status - Routine Psychiatric Exam Present: normal affect, normal thought process, homicidal ideation. Absent: auditory
--- NOTE | 2020-04-18 14:54 | HMH.SLDYSPHA ---
Speech & Language Evaluation Speech/Language Dysphagia Evaluation Start: 04/18/20 11:43 Freq: ONCE Status: Active Protocol: Document 04/18/20 11:43 CMAY (Rec: 04/18/20 11:47 CMAY [email or web address]) Dysphagia Assess/Goals/Plan Assessment Date of Evaluation: 04/18/20 Evaluation Type Initial Certification Assessment/Problems Dysphagia Does Patient Qualify for Service No Qualify/Failure Comment Patient does not qualify for ST services at this time based on the results of today's evaluation. No s/s of penetration or aspiration were noted. Recommendations PHYSICIAN CERTIFICATION: The specified therapy services are required, authorized, and reviewed every 30 days. Diet Recommendations Normal Liquid Type Recommendations Normal/Thin Dysphagia Swallow Precautions/Strategies Sitting Upright (90 deg) Comment Recommend eating at a slower rate. Plan Pt/Guardian verbally ack understanding Yes of dx/prognosis/goals G -code Required No Education Instructions provided Education provided to patient regarding swallowing safety strategies to implement such as sitting upright during intake. Pt/Caregiver able to recall information Able to recall/restate Reinforcement needed No Speech & Language HPI Language Primary Language Croatian General Information General Current Food Consistancy Regular,Thin Liquids Dentition Good Dentition Oxygen Status Room Air Facial Symmetry Symmetrical Patient Orientation Person,Place,Time,Situation Ability to Follow Directions Excellent Communication Ability No Impairment Dysphagia:Food Presentation Evaluation Food Type Mechanical Soft,Regular,Liquid ,Pudding Normal/Thin Liquid Response Swallows too rapid Pudding Consistency Liquid Response Swallows too rapid Dysphagia Evaluation Mechanical Soft Residual on tongue,Swallows Food Behavior Response too rapid Dysphagia Evaluation Regular Food Residual on tongue,Swallows Behavior Response too rapid Dysphagia Evaluation Summary Patient was presented with trials of thin liquid via spoon x2, cup x2, and straw x2 . Patient took very large drinks via cup and straw. No clinical s/s of penetration or aspiration were observed.
== END 2020-04-18 15:45 | disposition home or self-care (01) | DRG 917 ==
LOC: ER 22:41 → 2ND 04-17 00:39
PROVIDERS: Internal Medicine Pulmonary Disease; Admitting Provider Emergency Medicine; Emergency Provider Emergency Medicine; PCP Emergency Medicine; Visit Provider Family Medicine
DX: T40.991A Poisoning by other psychodysleptics [hallucinogens], accidental (unintentional), initial encounter (principal); J96.02 Acute respiratory failure with hypercapnia; J96.01 Acute respiratory failure with hypoxia; J69.0 Pneumonitis due to inhalation of food and vomit; T40.2X1A Poisoning by other opioids, accidental (unintentional), initial encounter; Z72.0 Tobacco use; Z86.19 Personal history of other infectious and parasitic diseases
CPT/HCPCS: 31500; 94002; 36415; 71045; 80048; 80053; 80305; 81001; 82550; 82803; 82962; 83735; 84484; 85007; 85025; 86328; 87070; 87205; 87581; 87633; 87798; 92610; 93005; 93306; 96365; 96366; 96375; 96376; 99285; G0378; J1956; J2310; J2405; J2704